=== PATIENT | female | born 1940 | race Caucasian/White ===

== ENCOUNTER 2018-09-07 11:48 | Observation (INO) ==
[2018-09-07 12:05] LABS: Baso # (Auto) 0.1 th/mm3 (0.0-0.2); Baso % (Auto) 0.9 % (0.0-2.0); Hematocrit 41.8 % (35.0-46.0); Hemoglobin 13.3 gm/dL (11.6-15.3); Lymph # (Auto) 2.9 th/mm3 (1.0-4.8); Lymph % (Auto) 32.8 % (9.0-44.0); Mean Corpuscular HGB Conc 31.8 % (32.0-36.0); Mean Corpuscular Hemoglobin 28.4 pg (27.0-34.0); Mean Corpuscular Volume 89.2 fL (80.0-100.0); Mean Platelet Volume 7.8 fL (7.0-11.0); Mono # (Auto) 0.7 th/mm3 (0.0-0.9); Mono % (Auto) 7.9 % (0.0-8.0); Neut # (Auto) 5.1 th/mm3 (1.8-7.7); Neut % (Auto) 58.4 % (16.0-70.0); Platelet Count 382 th/mm3 (150-450); Red Blood Count 4.68 mil/mm3 (4.00-5.30); Red Cell Distribution Width 13.6 % (11.6-17.2); White Blood Count 8.8 th/mm3 (4.0-11.0)
--- NOTE | 2018-09-07 12:12 | CT ---
EXAM DATE: 09/07/2018 12:08 PM EST AGE/SEX: 78 years / Female INDICATIONS: Stroke alert. Resolved right facial droop, slurred speech and right arm weakness. CLINICAL DATA: This is the patient's initial encounter. Patient reports that signs and symptoms have been present for 1 day and indicates a pain score of 0/10. MEDICAL/SURGICAL HISTORY: Hypertension. None. RADIATION DOSE: 47.25 CTDI (mGy) COMPARISON: No prior exams available for comparison. TECHNIQUE: CT of the head without contrast. Using automated exposure control and adjustment of the mA and/or kV according to patient size, radiation dose was kept as low as reasonably achievable to ob tain optimal diagnostic quality images. DICOM format image data is available electronically for revi ew and comparison. FINDINGS: Cerebrum: The ventricles are normal for age. No evidence of midline shift, mass lesion, hemorrhage or acute infarction. No extraaxial fluid collections are seen. Posterior Fossa: The cerebellum and brainstem are intact. The 4th ventricle is midline. The cerebe llopontine angle is unremarkable. Extracranial: The visualized portion of the orbits is intact. Skull: The calvaria is intact. No evidence of skull fracture. CONCLUSION: Negative CT Head non contrast. Report was called by [ Mikaela to Arabella at 1208 Electronically signed by: Kodi Al MD Board Certified Radiologist 09/07/2018 12:11 PM EST
[2018-09-07 12:13] LABS: Potassium 3.8 meq/L (3.5-5.1)
--- NOTE | 2018-09-07 12:14 | ED ---
HPI General Chief Complaint: Stroke Alert Stated Complaint: stroke alert/evac Time Seen by Provider: 09/07/18 11:55 History of Present Illness HPI Narrative: This patient presents as a stroke alert. Patient was sitting on the toilet when she developed abrupt onset of right arm weakness and right arm numbness. She was slurring her words as well. She felt dizzy at that time. Paramedics were called and reported that her arm was flaccid when they arrived. They said that she was slurring and had a facial droop. However prior to arrival in the emergency room those symptoms have resolved. I immediately saw her in the emergency room upon her all symptoms had resolved and she was back to neurologic normal. She takes a daily aspirin. She has no prior history of stroke. She does not have headache. Symptoms were moderately severe but have resolved. At current her symptoms are nonexistent. Duration was 30 minutes. No alleviating factors. No exacerbating factors. Related Data Home Medications Medication Instructions Recorded Confirmed aspirin [Aspir-81] 81 mg PO DAILY 09/07/18 09/07/18 fenofibrate mg PO DAILY 09/07/18 losartan mg PO DAILY 09/07/18 simvastatin mg PO QPM 09/07/18 Allergies Allergy/AdvReac Type Severity Reaction Status Date / Time No Known Allergies Allergy Verified 09/07/18 12:09 Review of Systems ROS: all other systems reviewed are negative [facility] Social History Social History Substance History: No History of Abuse Second Hand Smoke Exposure: No Smoking Status: Never smoker How Often Do You Have a Drink Containing Alcohol: Monthly or less Recent Travel in [facility] within the Last 8 Weeks: No Recent Out of Country Travel within the Last 8 Weeks: No Exam Narrative Exam Narrative: GENERAL: Well-nourished, well-developed patient in no apparent distress. SKIN: Focused skin assessment reveals no rash and nodules. Skin is Warm and dry. HEAD: Atraumatic. Normocephalic. EYES: Pupils equal and round. No scleral icterus. No injection or drainage. ENT: No nasal bleeding or discharge. Mucous membranes pink and moist. NECK: Trachea midline. No JVD. CARDIOVASCULAR: Regular rate and rhythm. No murmur appreciated. RESPIRATORY: No accessory muscle use. Clear to auscultation. Breath sounds equal bilaterally. GASTROINTESTINAL: Abdomen soft, non-tender, nondistended. Hepatic and splenic margins not palpable. MUSCULOSKELETAL: No obvious deformities. No clubbing. No cyanosis. No edema. NEUROLOGICAL: Awake and alert. No obvious cranial nerve deficits. Motor grossly within normal limits. Normal speech. PSYCHIATRIC: Appropriate mood and affect; insight and judgment normal. Course Initial Documented Vital Signs Temperature 98.1 F 09/07/18 11:50 Pulse Rate 76 09/07/18 11:50 Respiratory Rate 18 09/07/18 11:50 Blood Pressure 143/64 H 09/07/18 11:50 Pulse Oximetry 96 09/07/18 11:50 Last Documented Vital Signs Temperature 98.1 F 09/07/18 11:50 Pulse Rate 81 09/07/18 13:00 Respiratory Rate 18 09/07/18 13:00 Blood Pressure 143/54 H 09/07/18 13:00 Pulse Oximetry 96 09/07/18 13:00 Critical Care Time Critical Care Time: Yes Total Critical Care Time: 40 Attestation: Aggregate critical care time was 40 minutes. Time to perform other separately billable procedures was not included in the critical care time. My time did not include minutes spent treating any other patients simultaneously or on activities that did not directly contribute to the patient's treatment. The services I provided to this patient were to treat and/or prevent clinically significant deterioration that could result in: Permanent neurologic deficit, brain stem herniation, loss of airway I provided critical care services requiring my management, as noted below: Chart data review, documentation time, medication orders and management, vital sign assessments/reviewing monitor data, ordering and reviewing lab tests, ordering and interpreting/reviewing x-rays and diagnostic studies, care of the patient and discussion of the patient with the admitting physicians. Medical Decision Making MDM Narrative Medical decision making narrative: 70-year-old female who appears to have had TIA type symptoms. She was a stroke alert and I did review with neurologist Dr. Hernandez. He recommends proceed with brain CT and CTA of head and neck. I spoke with radiologist. Her brain CT is negative. She does not meet any TPA criteria as her symptoms have resolved. I have ordered the stroke alert protocol. Her NIH stroke scale is 0, she is neurologically normal CTs are negative. Neurologist has recommended 150 mg Plavix which I gave her. She will be an observation in the hospital for TIA I placed a call to the hospitalist to discuss Medical Screen Exam Complete: Yes Emergency Medical Condition: Yes Lab Data Lab results reviewed: Yes I reviewed the patient's lab results. Lab results narrative: CBC is normal. Metabolic studies are normal Result diagrams: 09/07/18 11:55 09/07/18 11:55 Lab Results 09/07/18 09/07/18 09/07/18 Range/Units 11:55 11:55 11:55 CBC w Diff Auto diff final WBC 8.8 (4.0-11.0) th/mm3 RBC 4.68 (4.00-5.30) mil/mm3 Hgb 13.3 (11.6-15.3) gm/dL Hct 41.8 (35.0-46.0) % MCV 89.2 (80.0-100.0) fL MCH 28.4 (27.0-34.0) pg MCHC 31.8 L (32.0-36.0) % RDW 13.6 (11.6-17.2) % Plt Count 382 (150-450) th/mm3 MPV 7.8 (7.0-11.0) fL Neut % (Auto) 58.4 (16.0-70.0) % Lymph % (Auto) 32.8 (9.0-44.0) % [place] % (Auto) 7.9 (0.0-8.0) % Eos % (Auto) 0.0 (0.0-4.0) % Baso % (Auto) 0.9 (0.0-2.0) % Neut # (Auto) 5.1 (1.8-7.7) th/mm3 Lymph # (Auto) 2.9 (1.0-4.8) th/mm3 [place] # (Auto) 0.7 (0.0-0.9) th/mm3 Eos # (Auto) 0.0 (0.0-0.4) th/mm3 Baso # (Auto) 0.1 (0.0-0.2) th/mm3 WBC Differential . Differential Comment . PT 10.5 (9.8-11.6) sec INR 1.0 Ratio APTT 22.4 L (23.4-31.7) sec Fibrinogen 272 (227-377) mg/dL Sodium 140 (136-145) meq/L Potassium 3.8 (3.5-5.1) meq/L Chloride 105 (98-107) meq/L Carbon Dioxide 27.5 (21.0-32.0) meq/L Anion Gap 8 (5-15) meq/L BUN 20 H (7-18) mg/dL Creatinine 0.92 (0.50-1.00) mg/dL Estimated GFR 59 L (>89) mL/min Random Glucose 147 H (74-106) mg/dL Calcium 8.6 (8.5-10.1) mg/dL Imaging Data Attestation: I personally reviewed and interpreted this imaging study as follows : My impression: CTA of head and neck and CT brain are negative Radiologist's impression: Head CT 09/07/18 11:55 CONCLUSION: Negative CT Head non contrast. Report was called by Doris Al to Arabella at 1208 Head CTA 09/07/18 11:55 CONCLUSION: 1. Negative CTA Head. The findings were called by Dr. Chambers to Dr. Hernandez at 12:24 PM on 09/07/2018. Neck CTA 09/07/18 11:55 CONCLUSION: 1. Negative CTA Carotid. Discharge Plan Discharge Disposition Patient Disposition: ED Admit(ED Internal Use Only) Discharge Details Diagnosis: TIA (transient ischemic attack) Physicians Team ED Provider: Grey Bell Primary Care Provider: NON STAFF,PROVIDER Other Providers: ; Nestor Hernandez Rxs /Orders / Referrals /Forms Prescriptions: No Action losartan 50 mg Tablet PO DAILY RF: 0 aspirin [Aspir-81] 81 mg Tablet,Delayed Release (Dr/Ec) 81 mg PO DAILY RF: 0 simvastatin 20 mg Tablet PO QPM RF: 0 fenofibrate 50 mg Capsule PO DAILY RF: 0 Discharge Interventions Interventions: Vital Signs Last Done: 09/07/18 13:00 Status ED Status: With Doctor
[2018-09-07 12:16] LABS: Calcium 8.6 mg/dL (8.5-10.1); Carbon Dioxide 27.5 meq/L (21.0-32.0)
[2018-09-07 12:17] LABS: Activated Partial Thrombo Time 22.4 sec (23.4-31.7); Prothrombin Time 10.5 sec (9.8-11.6)
--- NOTE | 2018-09-07 12:27 | CT ---
EXAM DATE: 09/07/2018 12:20 PM EST AGE/SEX: 78 years / Female INDICATIONS: Stroke alert. Resolved right facial droop, slurred speech and right arm weakness. CLINICAL DATA: This is the patient's initial encounter. Patient reports that signs and symptoms have been present for 1 day and indicates a pain score of 0/10. MEDICAL/SURGICAL HISTORY: Hypertension. None. RADIATION DOSE: 42.20 CTDI (mGy) ; Combined studies COMPARISON: [facility]PO, CTA NECK W CONTRAST W 3D, 09/07/2018. . TECHNIQUE: Volumetric scanning was performed using a multi-row detector CT scanner during bolus infu boni of 100 ml Visipaque 320 (iodixanol) nonionic water-soluble contrast as a cumulative dose for mu ltiple exams. The data was post processed with a variety of visualization algorithms including full volume maximum intensity projection, multi-planar sliding thin slab reformation, curved planar refor mation, and surface rendering techniques. Using automated exposure control and adjustment of the mA and/or kV according to patient size, radiation dose was kept as low as reasonably achievable to obtai n optimal diagnostic quality images. DICOM format image data is available electronically for review and comparison. FINDINGS: There is excellent visualization of the major intracranial arteries out to the second-order branch ve ssels. There is no evidence for aneurysm, vessel truncation or stenosis, and no evidence for vascula r malformation. CONCLUSION: 1. Negative CTA Head. The findings were called by Dr. Chambers to Dr. Hernandez at 12:24 PM on 09/07/2018. Electronically signed by: Zach Chambers MD Board Certified Radiologist 09/07/2018 12:26 PM EST
[2018-09-07] MEDS: Sod Chloride 0.9% Inj 1,000 ML IV.CONT SCH (12:38)
--- NOTE | 2018-09-07 12:48 | CT ---
EXAM DATE: 09/07/2018 12:42 PM EST AGE/SEX: 78 years / Female INDICATIONS: Stroke alert. Resolved right facial droop, slurred speech and right arm weakness. CLINICAL DATA: This is the patient's initial encounter. Patient reports that signs and symptoms have been present for 1 day and indicates a pain score of 0/10. MEDICAL/SURGICAL HISTORY: Hypertension. None. RADIATION DOSE: 42.20 CTDI (mGy) ; Combined studies COMPARISON: POI, CT SOFT TISSUE NECK W/ CONTRAST, 04/13/2017. . TECHNIQUE: Volumetric scanning was performed using a multirow detector CT scanner during bolus infus ion of 100 ml Visipaque 320 (iodixanol) nonionic water-soluble contrast as a cumulative dose for mul tiple exams. The data was postprocessed with a variety of visualization algorithms including full-v olume maximum intensity projection, multiplanar sliding thin-slab reformation, curved-planar reformat ion, and surface-rendering techniques. Using automated exposure control and adjustment of the mA and /or kV according to patient size, radiation dose was kept as low as reasonably achievable to obtain o ptimal diagnostic quality images. DICOM format image data is available electronically for review and comparison. FINDINGS: Aortic Arch: There is a three-vessel origin of the great vessels from the aorta. No evidence of ost ial narrowing Right Carotid: The common carotid artery is intact. The carotid bulb has a normal configuration wit hout ulceration or narrowing. The internal carotid artery lumen is smooth without stenosis. The ext ernal carotid artery is intact. Left Carotid: The common carotid artery is intact. The carotid bulb has a normal configuration with out ulceration or narrowing. The internal carotid artery lumen is smooth without stenosis. The exte rnal carotid artery is intact. Vertebrals: The vertebral arteries have a symmetric diameter. No stenotic lesions are seen. Percent stenosis is calculated using the diameter of the stenotic region over the diameter of the nor mal distal internal carotid artery. CONCLUSION: 1. Negative CTA Carotid. Electronically signed by: Zach Chambers MD Board Certified Radiologist 09/07/2018 12:46 PM EST
[2018-09-07] MEDS ORDERED: Dextrose 50% in Water 50 ML Vial IV.PUSH PRN (13:46)
--- NOTE | 2018-09-07 14:16 | MB ---
cc: Nestor Hernandez MD DATE: 09/07/2018 HISTORY OF PRESENT ILLNESS: A 78-year-old right-handed woman with hypertension, hypercholesterolemia, melanoma on her left lower face area about 6 years ago without mass. She does take a baby aspirin a day. About 2 days ago, she began to have some pain in her left side of her neck and then at about 10:30 this morning, she was on the toilet and felt dizzy. Her right arm felt heavy and right numbness on the face with slurred speech and a right facial droop. She is not sure if she could move the right leg or not. She was calling her for about 20 minutes. He finally came in the bathroom and noticed she could not move her right leg and she had a right facial droop and she was brought in by the case preparer and liner. By the time she got here, her symptoms had resolved, so she did not get TPA. SOCIAL HISTORY: Nonsmoker, occasional drinker, lives with her . FAMILY HISTORY: Negative for cancer, seizure, stroke. Positive for CAD. REVIEW OF SYSTEMS: Denies any diabetes, chest pain, palpitations, headache, [place], CABG, diabetes, stent, angioplasty, atrial fibrillation, Coumadin, renal, hepatic or pulmonary disease, thyroid disease, lupus, ulcer, cancer, seizure, prior stroke. MEDICATIONS: She does take a baby aspirin a day. He is also on simvastatin, losartan, fenofibrate. ALLERGIES: NO KNOWN DRUG ALLERGIES. PHYSICAL EXAMINATION: VITAL SIGNS: Sinus rhythm 150/70, 80, 16. Afebrile 143/54, 81, 18. NECK: There were no carotid bruits. HEART: Regular rhythm. I did not detect a murmur. NEUROLOGIC: Pupils are equal. Visual price are full. Extraocular movements intact without nystagmus. Face is symmetric with normal sensation. Tongue was midline. There is no drift. Normal strength in upper and lower extremities bilaterally. DTRs 1+ and symmetric throughout. Toes downgoing bilaterally. Pinprick is intact throughout. Did not test [id number] or [id number]. Speech is fluent. She is not aphasic. Repetition naming normal. She is alert and oriented. LABORATORY DATA: CBC today is normal. Platelet count normal. Coagulation studies normal. Basic metabolic profile was normal. Review CTA of the carotids: Carotids do look normal. Vertebral arteries and basilar artery looks normal. Vertebral arteries are codominant. I do not see any abnormality there. May be a little bit of irregularity to that left vertebral artery and some calcification; however, I will have to review that with the radiologist. Head CTA also read as negative on review of those films. That was also normal. Head CT: The brain was read as negative. CTA of the neck also appears to be normal IMPRESSION: It sounds like certainly a major transient ischemic attack. We have given her Plavix here 150 mg and I will give her 75 a day. Continue her on aspirin [address] and CTAs were negative. We will do an MRI of the brain and a stroke workup. Keep her head of bed flat. Intravenous hydration for now, but she appears to have returned to normal. NIH stroke scale was 0 and she did not get tissue plasminogen activator. I will talk to the radiologist about the origin of the left vertebral artery and we will do an MRI and do the stroke workup at this time and put her on Plavix. MD OLIVIER Kim/christi , 01:53 PM , 02:03 PM
[2018-09-07 14:51] LABS: Thyroid Stimulating Hormone 12.9 uIU/mL (0.358-3.740)
[2018-09-07] MEDS ORDERED: Gadobutrol PF 7.5 MMOL/7.5 ML Vial (for RAD) IV.SIG ONE (15:19)
--- NOTE | 2018-09-07 15:29 | MR ---
EXAM DATE: 09/07/2018 3:23 PM EST AGE/SEX: 78 years / Female INDICATIONS: . Right arm numbness with right facial droop. CLINICAL DATA: This is the patient's initial encounter. Patient reports that signs and symptoms have been present for 1 day and indicates a pain score of 0/10. MEDICAL/SURGICAL HISTORY: Hypertension. Hypercholesterolemia. Hysterectomy. rectal prolapse re pair COMPARISON: [facility]PO, CT HEAD W/O CONTRAST, 09/07/2018. HPO, CTA HEAD W CONTRAST W 3D, 09/07/2018. . TECHNIQUE: Multiplanar, multisequence examination of the brain was performed without and with 7 ml Ga davist (gadobutrol) contrast as a single exam dose. FINDINGS: Cerebrum: Mild cerebral atrophy is noted. Scattered old tiny lacunar infarcts are noted within the b ilateral basal ganglia. No evidence of midline shift, mass lesion, hemorrhage or acute infarction. N o extraaxial fluid collections are seen. The pituitary gland and suprasellar cistern are normal in c onfiguration. White Matter: Mild periventricular white matter small vessel ischemic changes are noted bilaterally. Posterior Fossa: The cerebellum and brainstem are intact. The 4th ventricle is midline. The cerebel lopontine angle is unremarkable. The cerebellar tonsils are normal in position. Diffusion Imaging: No focal areas of restricted diffusion are seen. No evidence of acute infarction . Extracranial: The visualized portions of the orbits and paranasal sinuses are unremarkable. Post Contrast: No abnormal areas of parenchymal or dural enhancement. No evidence of blood-brain ba rrier breakdown. CONCLUSION: 1. No acute infarct, acute hemorrhage, midline shift or extra-axial fluid collections. 2. Mild periventricular white matter small vessel ischemic changes bilaterally. 3. Mild cerebral atrophy. 4. Scattered old tiny lacunar infarcts within the bilateral basilar ganglia. 5. No abnormal enhancing mass lesion. Electronically signed by: Zach Chambers MD Board Certified Radiologist 09/07/2018 3:27 PM EST
--- NOTE | 2018-09-07 17:09 | P.HP ---
History of Present Illness Primary Care Physician: PROVIDER NON STAFF Chief Complaint: Slurring of speech and right facial droop, weakness History of Present Illness: This is a very pleasant 78-year-old female patient with a known medical history of hyperlipidemia and hypertension who presented to the ED with strokelike symptoms and a stroke alert was called. Neurology was called and symptoms improved therefore she did not get TPA. Supposedly patient was sitting on the toilet this morning calling for her for roughly 20 minutes and when he presented to the bathroom the patient was mumbling, complaining of right arm weakness as well as right facial droop and slurring of speech. [facility] was called and on transport to the hospital patient symptoms resolved completely. Patient denies any history of stroke. She does take a baby aspirin per day. It should be noted that patient has had complaints of left-sided neck pain as well as cluster headaches daily. She denies any recent fevers, chills, chest pain, lightheadedness, dizziness, abdominal pain, nausea, vomiting, diarrhea or dysuria. Patient lives at home with her , able to perform all ADLs per self. Primary care physician is Dr. Puri, last seen in February with no new changes to her medicines. Workup has been negative so far head CT negative, CTA is negative. MRI also negative. - Diagnosis (1) TIA (transient ischemic attack) Review of Systems All other systems reviewed negative except as stated [facility] - History History Provided By: Patient - Social History I have reviewed the patient's Social History: Yes - Tobacco History Second Hand Smoke Exposure: No Smoking Status: Never smoker - Alcohol History How Often Do You Have a Drink Containing Alcohol: Monthly or less - Substance Use History Substance History: No History of Abuse - Travel History Recent Travel in the [facility] Within the Last 8 Weeks: No Recent Travel Out of the Country Within the Last 8 Weeks: No - Immunization History Tetanus Immunization: Unsure Medications and Allergies Active Medications: Active Medications Aspirin (Ecotrin) 81 mg PO DAILY [facility] Clopidogrel Bisulfate (Plavix) 75 mg PO DAILY [facility] Dextrose (D50w Vial) 50 ml IV.PUSH UNSCH PRN PRN Reason: per Hypoglycemic Protocol Glucagon (Glucagon Inj) 1 mg OTHER UNSCH PRN PRN Reason: per Hypoglycemic Protocol Sodium Chloride (Ns Inj) 1,000 mls @ 70 mls/hr IV.CONT .[id number] JADYN Last Infusion: 09/07/18 15:50 Dose: 70 mls/hr Miscellaneous Medication ([facility] Information) 1 each OTHER UNSCH X1 PRN PRN Reason: PHARMACY DOCUMENTATION Stop: 09/08/18 13:53 Allergies Allergy/AdvReac Type Severity Reaction Status Date / Time No Known Allergies Allergy Verified 09/07/18 12:09 Home Medications Medication Instructions Recorded Confirmed Type aspirin [Aspir-81] 81 mg PO DAILY 09/07/18 09/07/18 History fenofibrate mg PO DAILY 09/07/18 History losartan mg PO DAILY 09/07/18 History simvastatin mg PO QPM 09/07/18 History Exam Vital signs: Vital Signs 09/07/18 11:50 09/07/18 12:00 09/07/18 13:00 Temperature 98.1 F Pulse Rate 76 76 81 Respiratory Rate 18 18 Blood Pressure 143/64 H 143/54 H Pulse Oximetry 96 96 96 09/07/18 16:00 Temperature 97.5 F L Pulse Rate 85 Respiratory Rate 20 Blood Pressure 132/63 Pulse Oximetry 95 Intake & Output 09/06/18 09/07/18 09/07/18 18:59 06:59 18:59 Intake Total 500 / 500 Balance 500 / 500 Weight 68.7 kg Intake: IV 500 / 500 NS Inj 1,000 ML @ 70 mls/hr IV. 500 / 500 CONT .[id number] [facility] Rx#: [id number] Narrative: GENERAL: Well-developed, well-nourished elderly female patient in [facility]. SKIN: Warm and dry. No rash. HEAD: Normocephalic. Atraumatic. EYES: Pupils equal and round. No scleral icterus. No injection or drainage. ENT: No nasal bleeding or discharge. Mucous membranes pink and moist. NECK: Supple. Trachea midline. CARDIOVASCULAR: Regular rate and rhythm. S1, S2 noted. No murmur appreciated. RESPIRATORY: No accessory muscle use. Clear to auscultation. Breath sounds equal bilaterally. GASTROINTESTINAL: Abdomen soft, non-tender, nondistended. Normoactive bowel sounds x4. MUSCULOSKELETAL: No obvious deformities. Extremities without clubbing, cyanosis , or edema. NEUROLOGICAL: Awake and alert. No obvious cranial nerve deficits. Motor grossly within normal limits.4/5 muscle strength in right upper extremity. 5 out of 5 muscle strength in left upper extremity and lateral lower extremities. Normal speech. PSYCHIATRIC: Appropriate mood and affect; insight and judgment normal. Results - Labs CBC & Chem 7: 09/07/18 11:55 09/07/18 11:55 Labs: Laboratory Results - last 24 hr 09/07/18 09/07/18 09/07/18 11:55 11:55 11:55 CBC w Diff Auto diff final WBC 8.8 RBC 4.68 Hgb 13.3 Hct 41.8 MCV 89.2 MCH 28.4 MCHC 31.8 L RDW 13.6 Plt Count 382 MPV 7.8 Neut % (Auto) 58.4 Lymph % (Auto) 32.8 [place] % (Auto) 7.9 Eos % (Auto) 0.0 Baso % (Auto) 0.9 Neut # (Auto) 5.1 Lymph # (Auto) 2.9 [place] # (Auto) 0.7 Eos # (Auto) 0.0 Baso # (Auto) 0.1 WBC Differential . Differential Comment . ESR PT 10.5 INR 1.0 APTT 22.4 L Fibrinogen 272 Sodium 140 Potassium 3.8 Chloride 105 Carbon Dioxide 27.5 Anion Gap 8 BUN 20 H Creatinine 0.92 Estimated GFR 59 L Random Glucose 147 H Calcium 8.6 TSH 09/07/18 09/07/18 11:55 11:55 CBC w Diff WBC RBC Hgb Hct MCV MCH MCHC RDW Plt Count MPV Neut % (Auto) Lymph % (Auto) [place] % (Auto) Eos % (Auto) Baso % (Auto) Neut # (Auto) Lymph # (Auto) [place] # (Auto) Eos # (Auto) Baso # (Auto) WBC Differential Differential Comment ESR 5 PT INR APTT Fibrinogen Sodium Potassium Chloride Carbon Dioxide Anion Gap BUN Creatinine Estimated GFR Random Glucose Calcium TSH 12.900 H - Imaging Impressions Head CT 09/07/18 11:55 CONCLUSION: Negative CT Head non contrast. Report was called by Doris Bell at 1208 Head CTA 09/07/18 11:55 CONCLUSION: 1. Negative CTA Head. The findings were called by Dr. Chambers to Dr. Hernandez at 12:24 PM on 09/07/2018. Neck CTA 09/07/18 11:55 CONCLUSION: 1. Negative CTA Carotid. Head MRI 09/07/18 13:50 CONCLUSION: 1. No acute infarct, acute hemorrhage, midline shift or extra-axial fluid collections. 2. Mild periventricular white matter small vessel ischemic changes bilaterally. 3. Mild cerebral atrophy. 4. Scattered old tiny lacunar infarcts within the bilateral basilar ganglia. 5. No abnormal enhancing mass lesion. Caprini VTE Risk Assessment Caprini VTE Risk Assessment: Moderate/High Risk (score >= 2) Caprini Risk Assessment Model: Point Value = 1 Point Value = 2 Point Value = 3 Point Value = 5 Age 41-60 Minor surgery BMI > 25 kg/m2 Swollen legs Varicose veins or History of unexplained or recurrent spontaneous Oral contraceptives or hormone replacement Sepsis (< 1 month) Serious lung disease, including pneumonia (< 1 month) Abnormal pulmonary function Acute myocardial infarction Congestive heart failure (< 1 month) History of inflammatory bowel disease Medical patient at bed rest Age 61-74 Arthroscopic surgery Major open surgery (> 45 min) Laparoscopic surgery (> 45 min) Malignancy Confined to bed (> 72 hours) Immobilizing plaster cast Central venous access Age >= 75 History of VTE Family history of VTE Factor V Leiden Prothrombin [id number] Lupus anticoagulant Anticardiolipin antibodies Elevated serum homocysteine Heparin-induced thrombocytopenia Other congenital or acquired thrombophilia Stroke (< 1 month) Elective arthroplasty Hip, pelvis, or leg fracture Acute spinal cord injury (< 1 month) Prophylaxis Regimen: Total Risk Factor Score Risk Level Prophylaxis Regimen 0-1 Low Early ambulation 2 Moderate Order ONE of the following: *Sequential Compression Device (SCD) *Heparin 5000 units SQ BID 3-4 Higher Order ONE of the following medications: *Heparin 5000 units SQ TID *Enoxaparin/Lovenox 40 mg SQ daily (WT < 150 kg, CrCl > 30 mL/min) *Enoxaparin/Lovenox 30 mg SQ daily (WT < 150 kg, CrCl > 10-29 mL/min) *Enoxaparin/Lovenox 30 mg SQ BID (WT < 150 kg, CrCl > 30 mL/min) AND/OR *Sequential Compression Device (SCD) 5 or more Highest Order ONE of the following medications: *Heparin 5000 units SQ TID (Preferred with Epidurals) *Enoxaparin/Lovenox 40 mg SQ daily (WT < 150 kg, CrCl > 30 mL/min) *Enoxaparin/Lovenox 30 mg SQ daily (WT < 150 kg, CrCl > 10-29 mL/min) *Enoxaparin/Lovenox 30 mg SQ BID (WT < 150 kg, CrCl > 30 mL/min) AND *Sequential Compression Device (SCD) Assessment and Plan - Assessment (1) TIA (transient ischemic attack) Code(s): G45.9 - Transient cerebral ischemic attack, unspecified Status: Acute - Plan This is a 78-year-old female patient who presented to the ED with: Transient ischemic attack -Patient presented with roughly 30 minutes of right-sided facial droop, slurring of speech and right arm weakness prior to arrival. -Stroke alert was called and neurology was consulted stat. Did not receive TPA due to symptoms moving. -All imaging has been negative including head CT, CTA's an MRI. May have some left vertebral artery and some calcification irregularities. Neuro to speak with radiologist. Continue to monitor. -Awaiting echocardiogram and EEG. Follow. -TSH is elevated. Add free T4. -Awaiting hemoglobin A1c. -PT, OT and speech therapy consulted. Awaiting input. -Patient received aspirin as well as Plavix in ED. We will continue daily. -Neuro checks and close monitoring. -Continue IV fluids to ensure hydration. -Continue cardiac telemetry, monitor for any arrhythmias. -Supportive care. Hypertension, chronic -Allow for permissive hypertension. -Monitor blood pressure trends. DVT prophylaxis: SCDs.
[2018-09-07 18:35] LABS: Free T4 (Free Thyroxine) 1.08 ng/dL (0.76-1.46)
[2018-09-08] MEDS: Sod Chloride 0.9% Inj 1,000 ML IV.CONT SCH (03:37)
[2018-09-08 07:16] LABS: Baso % (Auto) 0.7 % (0.0-2.0); Eos % (Auto) 0.1 % (0.0-4.0); Hematocrit 38.4 % (35.0-46.0); Hemoglobin 12.9 gm/dL (11.6-15.3); Lymph # (Auto) 1.6 th/mm3 (1.0-4.8); Mean Corpuscular HGB Conc 33.5 % (32.0-36.0); Mean Corpuscular Hemoglobin 29.4 pg (27.0-34.0); Mean Corpuscular Volume 87.7 fL (80.0-100.0); Mean Platelet Volume 7.7 fL (7.0-11.0); Mono # (Auto) 0.6 th/mm3 (0.0-0.9); Mono % (Auto) 8.6 % (0.0-8.0); Neut # (Auto) 4.3 th/mm3 (1.8-7.7); Neut % (Auto) 66.6 % (16.0-70.0); Platelet Count 352 th/mm3 (150-450); Red Blood Count 4.38 mil/mm3 (4.00-5.30); Red Cell Distribution Width 13.1 % (11.6-17.2); White Blood Count 6.5 th/mm3 (4.0-11.0)
[2018-09-08 07:23] LABS: Chloride 109 meq/L (98-107); Potassium 3.7 meq/L (3.5-5.1); Sodium 143 meq/L (136-145)
[2018-09-08 07:29] LABS: Anion Gap 9 meq/L (5-15); Blood Urea Nitrogen 15 mg/dL (7-18); Carbon Dioxide 25.1 meq/L (21.0-32.0); Glucose,Random 96 mg/dL (74-106)
[2018-09-08 07:32] LABS: Glomerular Filtration Rate Greater Than 89 mL/min (>89)
[2018-09-08 07:35] LABS: Creatine Kinase 109 U/L (26-192)
[2018-09-08 10:16] LABS: Cholesterol 148 mg/dL (120-200); Triglycerides 126 mg/dL (42-150)
[2018-09-08 10:19] LABS: Chol/HDL Ratio 2.62 Ratio; HDL Cholesterol 56.3 mg/dL (40.0-60.0); LDL Cholesterol,Calculated 67 mg/dL (0-99)
--- NOTE | 2018-09-08 11:33 | ECHRPT ---
Indication: CVA/TIA CONCLUSIONS Normal left ventricular size. Wall thickness is measured at the upper limits of normal. The left ventricular systolic function is normal with an estimated ejection fraction in the range of 60-65%. No regional wall motion abnormalities are present. Trileaflet aortic valve. Mild calcification of the non-coronary cusp. Trace aortic valve regurgitati on. BP: / HR: Rhythm: MEASUREMENTS (Male / Female) Normal Values Technical Quality:Fair 2D ECHO LV Diastolic Diameter PLAX 3.5 cm 4.2 - 5.9 / 3.9 - 5.3 cm LV Systolic Diameter PLAX 2.4 cm IVS Diastolic Thickness 0.9 cm 0.6 - 1.0 / 0.6 - 0.9 cm LVPW Diastolic Thickness 1.0 cm 0.6 - 1.0 / 0.6 - 0.9 cm LV Relative Wall Thickness 0.5 RV Internal Dim ED PLAX 2.6 cm LVOT Diameter 2.0 cm Aortic Root Diameter 2.6 cm LA Systolic Diameter LX 3.1 cm 3.0 - 4.0 / 2.7 - 3.8 cm DOPPLER AV Peak Velocity 149.0 cm/s AV Peak Gradient 8.9 mmHg LVOT Peak Velocity 111.0 cm/s LVOT Peak Gradient 4.9 mmHg AV Area Cont Eq pk 2.3 cm Mitral E Point Velocity 70.1 cm/s Mitral A Point Velocity 116.0 cm/s Mitral E to A Ratio 0.6 LV E' Lateral Velocity 9.7 cm/s Mitral E to LV E' Lateral Ratio 7.3 LV E' Septal Velocity 5.8 cm/s Mitral E to LV E' Septal Ratio 12.2 TR Peak Velocity 124.0 cm/s TR Peak Gradient 6.2 mmHg Right Atrial Pressure 10.0 mmHg Pulmonary Artery Systolic Pressu 16.2 mmHg Right Ventricular Systolic Press 16.2 mmHg PV Peak Velocity 89.6 cm/s PV Peak Gradient 3.2 mmHg FINDINGS LEFT VENTRICLE Normal left ventricular size. Wall thickness is measured at the upper limits of normal. The left ventricular systolic function is normal with an estimated ejection fraction in the range of 60-65%. No regional wall motion abnormalities are present. RIGHT VENTRICLE Normal right ventricular size and systolic function. LEFT ATRIUM The left atrial size is normal. RIGHT ATRIUM The right atrial size is normal. ATRIAL SEPTUM Normal atrial septal thickness without atrial level shunting by limited color doppler interrogation. AORTA The aortic root and proximal ascending aorta are normal in size on limited imaging. MITRAL VALVE Trace mitral valve regurgitation. AORTIC VALVE Trileaflet aortic valve. Mild calcification of the non-coronary cusp. Trace aortic valve regurgitation. TRICUSPID VALVE Structurally normal tricuspid valve. No tricuspid valve stenosis or regurgitation. PULMONARY VALVE The pulmonary valve is not well visualized. VESSELS The inferior vena cava is normal in size. PERICARDIUM No pericardial effusion. Mj Ruelas MD (Electronically Signed) Final Date:08 September 2018 11:32
--- NOTE | 2018-09-08 12:09 | P.PNIM ---
Subjective Interval history: Patient seen sitting up in bed. Son and are present. Patient reports that all symptoms have resolved. She is no longer experiencing any weakness. No numbness. No headache or dizziness. No chest pain or shortness of breath. Physical Exam Vital signs: Last Vital Signs Temp 97.6 F 09/08/18 08:00 Pulse 65 09/08/18 08:00 Resp 20 09/08/18 08:00 BP 128/74 09/08/18 08:00 Pulse Ox 94 L 09/08/18 10:40 Intake & Output 09/06/18 09/07/18 09/08/18 09/09/18 06:59 06:59 06:59 06:59 Intake Total 1240 / 1240 812 / 812 Output Total 400 / 400 Balance 1240 / 1240 412 / 412 Weight 68.8 kg Narrative: GENERAL: Well-developed, well-nourished adult female patient in [facility]. SKIN: Warm and dry. No rash. HEAD: Normocephalic. Atraumatic. CARDIOVASCULAR: Regular rate and rhythm. RESPIRATORY: No accessory muscle use. Clear to auscultation. Breath sounds equal bilaterally. GASTROINTESTINAL: Abdomen soft, non-tender, nondistended. Normoactive bowel sounds x4. MUSCULOSKELETAL: No obvious deformities. Extremities without clubbing, cyanosis , or edema. NEUROLOGICAL: Awake and alert. No obvious cranial nerve deficits. 5 /5 upper and lower extremities. No obvious facial droop. Normal speech. PSYCHIATRIC: Appropriate mood and affect; insight and judgment normal. Results Labs CBC & Chem 7: 09/08/18 05:35 09/08/18 05:35 Imaging Imaging: Impressions Head CT 09/07/18 11:55 CONCLUSION: Negative CT Head non contrast. Report was called by Doris Bell at 1208 Head CTA 09/07/18 11:55 CONCLUSION: 1. Negative CTA Head. The findings were called by Dr. Chambers to Dr. Hernandez at 12:24 PM on 09/07/2018. Neck CTA 09/07/18 11:55 CONCLUSION: 1. Negative CTA Carotid. Head MRI 09/07/18 13:50 CONCLUSION: 1. No acute infarct, acute hemorrhage, midline shift or extra-axial fluid collections. 2. Mild periventricular white matter small vessel ischemic changes bilaterally. 3. Mild cerebral atrophy. 4. Scattered old tiny lacunar infarcts within the bilateral basilar ganglia. 5. No abnormal enhancing mass lesion. Assessment and Plan (1) TIA (transient ischemic attack): Code(s): G45.9 - Transient cerebral ischemic attack, unspecified Status: Acute Plan This is a 78-year-old female patient who presented to the ED with: Transient ischemic attack -Patient presented with roughly 30 minutes of right-sided facial droop, slurring of speech and right arm weakness prior to arrival. -Stroke alert was called and neurology was consulted stat. Did not receive TPA due to symptoms resolving. -All imaging has been negative including head CT, CTA's an MRI. May have some left vertebral artery and some calcification irregularities. Neuro to speak with radiologist. Continue to monitor. -Awaiting echocardiogram and EEG. Follow. -TSH is elevated. Add free T4. -T4 WNL. Recommend follow-up as outpatient. -Awaiting hemoglobin A1c. -PT, OT and speech therapy consulted. Awaiting input. -Patient received aspirin as well as Plavix in ED. We will continue daily. -Neuro checks and close monitoring. -09/08 Stopped IVF fluid. Patient taking adequate p.o. -Continue cardiac telemetry, monitor for any arrhythmias. -Supportive care. Hypertension, chronic -Allow for permissive hypertension. -Monitor blood pressure trends. DVT prophylaxis: SCDs. Discharge planning: Likely home pending neurology clearance. Progress Note: Quality VTE Deep Vein Thrombosis/Pulmonary Embolism Present on Admission: No
--- NOTE | 2018-09-08 14:11 | MG ---
cc: Sampson Flower MD, PhD TEST NUMBER: [id number] TECHNIQUE: A 17-channel EEG. DESCRIPTION: Background rhythm revealed a symmetrical alpha rhythm, frequency is roughly 8 Hz. There is some slowing in the theta range. I think probably drowsiness. No lateralizing features are identified. No epileptiform discharges are seen. There is quite a bit of theta slowing. Photic stimulation was done in a stepwise fashion with a fairly well-developed driving response. INTERPRETATION: Normal study. I think the slowing is probably related to drowsiness. Sampson Flower MD, PhD DAISHA/ct , 02:00 PM , 02:04 PM
[2018-09-08 15:02] LABS: Anti-Nuclear Antibody Screen Neg (Neg)
[2018-09-08 17:12] LABS: Hemoglobin A1c 5.9 % (4.3-6.0)
--- NOTE | 2018-09-08 18:41 | P.PNNEU ---
Subjective Active Medications: Active Medications Aspirin (Ecotrin) 81 mg PO DAILY [facility] Last Admin: 09/08/18 09:07 Dose: 81 mg Clopidogrel Bisulfate (Plavix) 75 mg PO DAILY [facility] Last Admin: 09/08/18 09:07 Dose: 75 mg Dextrose (D50w Vial) 50 ml IV.PUSH UNSCH PRN PRN Reason: per Hypoglycemic Protocol Glucagon (Glucagon Inj) 1 mg OTHER UNSCH PRN PRN Reason: per Hypoglycemic Protocol Allergies/Adverse Reactions: Allergies Allergy/AdvReac Type Severity Reaction Status Date / Time No Known Allergies Allergy Verified 09/07/18 12:09 Physical Exam Vital signs: Vital Signs 09/07/18 20:00 09/07/18 21:08 09/08/18 00:00 Temperature 97.3 F L 98.3 F Pulse Rate 83 90 Respiratory Rate 20 20 Blood Pressure 129/63 129/60 Pulse Oximetry 95 96 93 L 09/08/18 01:14 09/08/18 04:00 09/08/18 04:02 Temperature 97.8 F Pulse Rate 91 H 93 H 72 Respiratory Rate 18 Blood Pressure 134/63 Pulse Oximetry 93 L 09/08/18 08:00 09/08/18 10:40 09/08/18 12:00 Temperature 97.6 F 97.1 F L Pulse Rate 80 77 Respiratory Rate 20 20 Blood Pressure 128/74 143/51 H Pulse Oximetry 96 94 L 95 09/08/18 16:00 Temperature 98.1 F Pulse Rate 108 H Respiratory Rate 21 Blood Pressure 131/69 Pulse Oximetry 99 Intake & Output 09/07/18 09/08/18 09/08/18 18:59 06:59 18:59 Intake Total 500 / 500 740 / 740 1292 / 1292 Output Total 600 / 600 Balance 500 / 500 740 / 740 692 / 692 Weight 68.7 kg 68.8 kg Intake: IV 500 / 500 500 / 500 572 / 572 NS Inj 1,000 ML @ 70 mls/hr IV. 500 / 500 500 / 500 572 / 572 CONT .[id number] [facility] Rx#: [id number] Oral 240 / 240 720 / 720 Output: Urine 600 / 600 Other: # Voids 2 Date of Last Bowel Movement 09/07/18 09/07/18 Narrative: no new spell vff face sym nl speech 5/5 t/o Objective Laboratory Results - last 24 hr 09/07/18 09/07/18 09/08/18 16:35 21:08 05:35 CBC w Diff Auto diff final WBC 6.5 RBC 4.38 Hgb 12.9 Hct 38.4 MCV 87.7 MCH 29.4 MCHC 33.5 RDW 13.1 Plt Count 352 MPV 7.7 Neut % (Auto) 66.6 Lymph % (Auto) 24.0 [place] % (Auto) 8.6 H Eos % (Auto) 0.1 Baso % (Auto) 0.7 Neut # (Auto) 4.3 Lymph # (Auto) 1.6 [place] # (Auto) 0.6 Eos # (Auto) 0.0 Baso # (Auto) 0.0 WBC Differential . Differential Comment . Sodium Potassium Chloride Carbon Dioxide Anion Gap BUN Creatinine Estimated GFR POC Glucose 84 Random Glucose Calcium Total Creatine Kinase Troponin I Triglycerides Cholesterol LDL Cholesterol, Calc HDL Cholesterol Cholesterol/HDL Ratio SOHEILA Screen Neg RPR Nonreactive 09/08/18 09/08/18 09/08/18 05:35 07:32 11:47 CBC w Diff WBC RBC Hgb Hct MCV MCH MCHC RDW Plt Count MPV Neut % (Auto) Lymph % (Auto) [place] % (Auto) Eos % (Auto) Baso % (Auto) Neut # (Auto) Lymph # (Auto) [place] # (Auto) Eos # (Auto) Baso # (Auto) WBC Differential Differential Comment Sodium 143 Potassium 3.7 Chloride 109 H Carbon Dioxide 25.1 Anion Gap 9 BUN 15 Creatinine 0.64 Estimated GFR Greater than 89 POC Glucose 100 147 H Random Glucose 96 Calcium 8.0 L Total Creatine Kinase 109 Troponin I Less than 0.02 L Triglycerides 126 Cholesterol 148 LDL Cholesterol, Calc 67 HDL Cholesterol 56.3 Cholesterol/HDL Ratio 2.62 [place]HEILA Screen RPR 09/08/18 16:08 CBC w Diff WBC RBC Hgb Hct MCV MCH MCHC RDW Plt Count MPV Neut % (Auto) Lymph % (Auto) [place] % (Auto) Eos % (Auto) Baso % (Auto) Neut # (Auto) Lymph # (Auto) [place] # (Auto) Eos # (Auto) Baso # (Auto) WBC Differential Differential Comment Sodium Potassium Chloride Carbon Dioxide Anion Gap BUN Creatinine Estimated GFR POC Glucose 79 Random Glucose Calcium Total Creatine Kinase Troponin I Triglycerides Cholesterol LDL Cholesterol, Calc HDL Cholesterol Cholesterol/HDL Ratio SOHEILA Screen RPR Review/Management - Review/Management Daily Summary: imp mri neg tiny wm changes bilat echo nl ctax2 nl holter pend sr here ldl trop labs neg will need cardionet o/p plavix ok dc
--- NOTE | 2018-09-08 18:57 | P.DS ---
DS: Providers Date of admission: 09/07/18 13:31 Primary care physician: PROVIDER NON STAFF Consults: 09/07/18 11:55 Consult to Neurology Stat Consulting Provider: Nestor Hernandez For STAT consult, spoke directly to:: meka Preferred Tube Washer:: Nestor Hernandez Reason for Consultation: Brain Attack Notified:: Service Spoke with:: lisa Date Notified:: 09/07/18 Time Notified:: 12:02 Ordering Provider: KOMAL Brief History from admission: This is a very pleasant 78-year-old female patient with a known medical history of hyperlipidemia and hypertension who presented to the ED with strokelike symptoms and a stroke alert was called. Neurology was called and symptoms improved therefore she did not get TPA. Supposedly patient was sitting on the toilet this morning calling for her for roughly 20 minutes and when he presented to the bathroom the patient was mumbling, complaining of right arm weakness as well as right facial droop and slurring of speech. [facility] was called and on transport to the hospital patient symptoms resolved completely. Patient denies any history of stroke. She does take a baby aspirin per day. It should be noted that patient has had complaints of left-sided neck pain as well as cluster headaches daily. She denies any recent fevers, chills, chest pain, lightheadedness, dizziness, abdominal pain, nausea, vomiting, diarrhea or dysuria. Patient lives at home with her , able to perform all ADLs per self. Primary care physician is Dr. Puri, last seen in February with no new changes to her medicines. Workup has been negative so far head CT negative, CTA is negative. MRI also negative. DS: Diagnosis Discharge Diagnosis (1) TIA (transient ischemic attack): Status: Acute DS: Summary This is a 78-year-old female patient who presented to the ED with: Transient ischemic attack -resolved -Patient presented with roughly 30 minutes of right-sided facial droop, slurring of speech and right arm weakness prior to arrival. -Stroke alert was called and neurology was consulted stat. Did not receive TPA due to symptoms resolving. -All imaging has been negative including head CT, CTA's an MRI. -echocardiogram and EEG with no concerning results. -No dysrhythmia noted. -TSH is elevated. Add free T4. -T4 WNL. Recommend follow-up as outpatient. -Patient received aspirin as well as Plavix in ED. continue as outpatient; Rx given. Time Spent with Patient Total time spent providing and/or coordinating discharge services:<30 min Quality: VTE Deep Vein Thrombosis/Pulmonary Embolism Present on Admission: No Exam Narrative Exam Narrative: GENERAL: Well-developed, well-nourished adult female patient in NAD. SKIN: Warm and dry. No rash. HEAD: Normocephalic. Atraumatic. CARDIOVASCULAR: Regular rate and rhythm. RESPIRATORY: No accessory muscle use. Clear to auscultation. Breath sounds equal bilaterally. GASTROINTESTINAL: Abdomen soft, non-tender, nondistended. Normoactive bowel sounds x4. MUSCULOSKELETAL: No obvious deformities. Extremities without clubbing, cyanosis , or edema. NEUROLOGICAL: Awake and alert. No obvious cranial nerve deficits. 5 /5 upper and lower extremities. No obvious facial droop. Normal speech. PSYCHIATRIC: Appropriate mood and affect; insight and judgment normal. Results Labs on day of discharge: Labs from last 24 hours 09/08/18 09/08/18 09/08/18 16:08 11:47 07:32 CBC w Diff WBC RBC Hgb Hct MCV MCH MCHC RDW Plt Count MPV Neut % (Auto) Lymph % (Auto) [place] % (Auto) Eos % (Auto) Baso % (Auto) Neut # (Auto) Lymph # (Auto) [place] # (Auto) Eos # (Auto) Baso # (Auto) WBC Differential Differential Comment Sodium Potassium Chloride Carbon Dioxide Anion Gap BUN Creatinine Estimated GFR POC Glucose 79 147 H 100 Random Glucose Hemoglobin A1c Calcium Total Creatine Kinase Troponin I Triglycerides Cholesterol LDL Cholesterol, Calc HDL Cholesterol Cholesterol/HDL Ratio SOHEILA Screen RPR 09/08/18 09/08/18 09/08/18 05:35 05:35 05:35 CBC w Diff Auto diff final WBC 6.5 RBC 4.38 Hgb 12.9 Hct 38.4 MCV 87.7 MCH 29.4 MCHC 33.5 RDW 13.1 Plt Count 352 MPV 7.7 Neut % (Auto) 66.6 Lymph % (Auto) 24.0 [place] % (Auto) 8.6 H Eos % (Auto) 0.1 Baso % (Auto) 0.7 Neut # (Auto) 4.3 Lymph # (Auto) 1.6 [place] # (Auto) 0.6 Eos # (Auto) 0.0 Baso # (Auto) 0.0 WBC Differential . Differential Comment . Sodium 143 Potassium 3.7 Chloride 109 H Carbon Dioxide 25.1 Anion Gap 9 BUN 15 Creatinine 0.64 Estimated GFR Greater than 89 POC Glucose Random Glucose 96 Hemoglobin A1c Pending Calcium 8.0 L Total Creatine Kinase 109 Troponin I Less than 0.02 L Triglycerides 126 Cholesterol 148 LDL Cholesterol, Calc 67 HDL Cholesterol 56.3 Cholesterol/HDL Ratio 2.62 SOHEILA Screen RPR 09/07/18 09/07/18 21:08 16:35 CBC w Diff WBC RBC Hgb Hct MCV MCH MCHC RDW Plt Count MPV Neut % (Auto) Lymph % (Auto) [place] % (Auto) Eos % (Auto) Baso % (Auto) Neut # (Auto) Lymph # (Auto) [place] # (Auto) Eos # (Auto) Baso # (Auto) WBC Differential Differential Comment Sodium Potassium Chloride Carbon Dioxide Anion Gap BUN Creatinine Estimated GFR POC Glucose 84 Random Glucose Hemoglobin A1c Calcium Total Creatine Kinase Troponin I Triglycerides Cholesterol LDL Cholesterol, Calc HDL Cholesterol Cholesterol/HDL Ratio SOHEILA Screen Neg RPR Nonreactive Impressions ITS Impressions Head CT 09/07/18 11:55 CONCLUSION: Negative CT Head non contrast. Report was called by Doris Al to Arabella at 1208 Head CTA 09/07/18 11:55 CONCLUSION: 1. Negative CTA Head. The findings were called by Dr. Chambers to Dr. Hernandez at 12:24 PM on 09/07/2018. Neck CTA 09/07/18 11:55 CONCLUSION: 1. Negative CTA Carotid. Head MRI 09/07/18 13:50 CONCLUSION: 1. No acute infarct, acute hemorrhage, midline shift or extra-axial fluid collections. 2. Mild periventricular white matter small vessel ischemic changes bilaterally. 3. Mild cerebral atrophy. 4. Scattered old tiny lacunar infarcts within the bilateral basilar ganglia. 5. No abnormal enhancing mass lesion. Discharge Plan Discharge Disposition Patient Disposition: 01 Discharge Home Discharge Condition Condition: Stable Discharge Order Discharge Orders: Discharge Order (Routine); Ordered 09/08/18 Ordered By: Felisa Brown Discharge Details Anticipated Discharge Date: 09/08/18 Physicians Team ED Provider: Grey Bell Primary Care Provider: NON STAFF,PROVIDER Attending Provider: Shailesh Valiente Other Providers: ; Nestor Hernandez Rxs /Orders / Referrals /Forms Prescriptions: New clopidogrel [Plavix] 75 mg Tablet 75 mg PO DAILY Qty: 30 RF: 0 Continue losartan 50 mg Tablet PO DAILY RF: 0 aspirin [Aspir-81] 81 mg Tablet,Delayed Release (Dr/Ec) 81 mg PO DAILY RF: 0 simvastatin 20 mg Tablet PO QPM RF: 0 fenofibrate 50 mg Capsule PO DAILY RF: 0 Referrals: [facility] [Outside] - See Instructions Primary Care Provider [Outside] - See Instructions Nestor Hernandez MD [Physician] - See Instructions Discharge Instructions Patient Printed Instructions: Aspirin (By mouth), Clopidogrel (By mouth), Transient Ischemic Attack (DC), Telemetry Monitoring (GEN), Living With Your Heart Failure Monitoring System (DC) Post Discharge Care Plan Care Plan Goals: Discharge Care Plan Goals for Stroke You have been diagnosed with or have a high risk for a stroke, or a TIA ( transient ischemic attack). During a stroke, blood stops flowing to part of your brain. This can damage areas in the brain that control other parts of the body. Symptoms after a stroke depend on which part of the brain has been affected. Directions to Meet your Goals: 1. Diet: Based on your situation, your doctor will direct you to make changes in your diet. Some of the changes may include: * Reducing the amount of fat and cholesterol you eat * Don't add salt to your food. * Eat more fresh vegetables and fruits * Eat more lean proteins, such as fish, poultry, and beans and peas (legumes). Cut down on red meat & processed meats * Use low-fat dairy products * Limit vegetable oils and nut oils. Avoid any food that has hydrogenated listed in its ingredients. * Limit sweets and processed foods such as chips, cookies, and baked goods 2. Prevent Falls/Injury: You may be at risk of falling. Activity: * Keep your surrounding clutter free to help you walk more easily. * Your doctor and therapist may decide if you need an assistive device to walk safely. Shower/Bathing: * Test the water temperature with a hand or foot that was not affected by the stroke. * Use grab bars, a shower seat, a hand-held showerhead, and a long-handled brush. Getting Dressed: * Dress while sitting, starting with the affected side or limb. * Wear shirts that pull easily over your head. Wear pants or skirts with elastic waistbands. * Use zippers with loops attached to the pull tabs. 3. Lifestyle Modifications: * Take your medicines exactly as prescribed. Dont skip doses. * Begin an exercise program as directed by your doctor. You can benefit from simple activities such as walking or gardening. * Limit how much alcohol you drink. Men should have no more than 2 alcoholic drinks a day. Women should limit themselves to 1 alcoholic drink per day. * Know your cholesterol level. Follow your doctor's recommendations about how to keep cholesterol under control. * If you are a smoker, quit now. Joining a stop-smoking program will improve your chances of success. Ask your doctor for medicines or other methods to help you quit. * Learn stress management techniques to help you deal with stress in your home and work life. 4. Stroke Risk Factors: Once youve had a stroke, youre at greater risk for another one. Listed below are some other factors that can increase your risk for a stroke: * High blood pressure and High Cholesterol * Cigarette or cigar smoking * Diabetes * Carotid or other artery disease * Atrial fibrillation, atrial flutter, or other heart disease * Not being physically active * Obesity * Certain blood disorders such as sickle cell anemia * Drinking too much alcohol * Abusing street drugs * Race * Gender * Family history of stroke * Diet high in salty, fried, or greasy foods 5. Follow-up: * Keep your medical appointments. Close follow-up is important to stroke rehabilitation and recovery. * Some medicines require blood tests to check for progress or problems. Keep follow-up appointments for any blood tests ordered by your providers. Call 911 right away if you have: Weakness, tingling, or loss of feeling on one side of your face or body Sudden double vision or trouble seeing in one or both eyes Sudden trouble talking or slurred speech Trouble understanding others Sudden, severe headache Dizziness, loss of balance, or a sense of falling Blackouts or seizures F.A.S.T. is an easy way to remember the signs of stroke. When you see these signs, you know that you need to call 911 fast. F.A.S.T. stands for: * F is for face drooping. One side of the face is drooping or numb. When the person smiles, the smile is uneven. * A is for arm weakness. One arm is weak or numb. When the person lifts both arms at the same time, one arm may drift downward. * S is for speech difficulty. You may notice slurred speech or trouble speaking. The person can't repeat a simple sentence correctly when asked. * T is for time to call 911. If someone shows any of these symptoms, even if they go away, call 911 right away. Make note of the time the symptoms first appeared. Please call the physician's office to book the appointment to be seen within 1 week. Status ED Status: Left Department Discharge Information Discharge Date/Time: 09/08/18 19:30
--- NOTE | 2018-09-08 20:51 | ECG ---
Date Performed: 09/07/2018 Time Performed: 12:24:18 PTAGE: 78 years EKG: Sinus rhythm NONSPECIFIC T-WAVE ABNORMALITY BORDERLINE ECG PREVIOUS TRACING : 05/10/2014 13.02 DOCTOR: Richardson Moffett Interpretating Date/Time 09/08/2018 20:43:31
--- NOTE | 2018-09-09 22:52 | HM ---
Date Performed: 09/07/2018 Time Performed: 17:01:00 HOOKUP DATE: 09/07/18 05:01:00 PM Elisha ANALYSIS START TIME: 09/07/2018 5:06:00 PM ANALYSIS END TIME: 09/08/2018 2:58:21 PM PATIENT AGE: 78 PATIENT HEIGHT PATIENT WEIGHT DRUG LIST PATIENT DIAGNOSIS: TIA TEST NARRATIVE: The patient's average heart rate was 81 BPM. Heart rates greater than 120 B PM were noted < 1% of the time. No episodes of bradycardia were noted. No pauses exceeding 2.0 s econds were noted. 15 ventricular ectopics, which represented < 1% of the total beat count, were noted. The highest ventricular ectopic frequency occurred from 07:00 AM to 08:00 AM Fri. During thi s time 3 VE(s) occurred. Ventricular ectopics were observed as 15 isolated beat(s) only. No couplet s or runs were noted. 184 supraventricular ectopics, which represented < 1% of the total beat cou nt, were noted. The highest supraventricular ectopic frequency occurred from 11:00 PM to 12:00 AM Fr i. During this time 66 SVE(s) occurred. No episodes of ST depression (defined as -1.0 mm or more ) were noted in channel 1. No episodes of ST depression (defined as -1.0 mm or more) were noted in c [place] 2. No episodes of ST depression (defined as -1.0 mm or more) were noted in channel 3. NO DIAR Y MAINTAINED TEST INTERPRETATION: 1. Predominant underlying rhythm is Sinus rhythm 2. Occasional PACs and PVCs noted 3. No significant supraventricular or ventricular tachyarrythmias noted 4. No pauses greater than 2 sec noted Signed by : Oscar Casper
[2018-09-12 15:36] LABS: Methylmalonic Acid 0.21 nmol/mL (<=0.40)
== END 2018-09-08 19:30 | disposition home or self-care (01) ==
LOC: PHEDA 11:48 → PHED 11:48 → PH3 15:50
PROVIDERS: ADMIT Internal Medicine; ATTEND Internal Medicine
CPT/HCPCS: 70450; 70496; 70498; 70553; 80048; 80061; 82550; 82607; 82948; 82962; 83036; 83918; 83921; 84425; 84439; 84443; 84484; 85025; 85384; 85610; 85651; 85652; 85730; 86038; 86592; 90761; 92610; 93005; 93225; 93306; 95819; 96361; 96374; 97162; 97165; 99285; A9585; G0195; G0378; G8987; G8988; G8989; G8996; G8997; G8998; J2060; J7030; Q9967